=== PATIENT | female | born 1980 | race Caucasian/White ===

== ENCOUNTER 2024-08-03 11:45 | Outpatient (CLI) | payer OTHER, SELFPAY | END 2024-08-03 11:46 | disposition home or self-care (01) | PROVIDERS: PCP Physician Assistant; Visit Provider Obstetrics & Gynecology | DX: N83.209 Unspecified ovarian cyst, unspecified side (principal) | CPT/HCPCS: 82378; 86301; 86304 ==

== ENCOUNTER 2024-09-06 13:47 | Outpatient (CLI) | payer OTHER, SELFPAY ==
--- NOTE | 2024-09-06 13:45 | CRLHL7_ITS ---
For Patients: As a result of the Century Cures Act, medical imaging exams and procedure reports are released immediately into your electronic medical record. You may view this report before your referring provider. If you have questions, please contact your health care provider. CLINICAL HISTORY: Follow-up ovarian cysts TECHNIQUE: 2D carreon scale and color Doppler images were acquired of the pelvis using a transvaginal approach. COMPARISON 07/22/2024 FINDINGS: On transvaginal imaging, the myometrium has a normal uniform echotexture. The uterus measures 8.2 x 3.2 x 4.1 cm. The endometrial lining is not thickened. Normal position of an IUD within the endometrial canal. The left ovary measures 4.1 x 2.4 x 3.5 cm in size and the right ovary measures 3.0 x 1.3 x 2.6 cm. The ovaries demonstrate normal arterial and venous blood flow on color Doppler analysis. There are no suspicious fluid collections within the cul-de-sac. Decreased size of nonvascular hypoechoic right ovarian cyst measuring 1.3 x 0.8 x 1.3 cm, previously measuring 4.0 x 3.2 x 2.7 cm. Simple circumscribed anechoic left ovarian cyst measures 3.4 x 1.7 x 3.1 cm. Previously this measured 4.2 x 3.7 x 2.8 cm. Previously noted septations not present on the current study. IMPRESSION: Benign bilateral ovarian cysts. Dictated by Demetrius Darling MD @ 09/06/2024 5:18:51 PM (Electronically Signed)
== END 2024-09-06 13:48 | disposition home or self-care (01) ==
LOC: US 13:48
PROVIDERS: PCP Physician Assistant; Visit Provider Obstetrics & Gynecology
DX: N83.201 Unspecified ovarian cyst, right side (principal); N83.202 Unspecified ovarian cyst, left side
CPT/HCPCS: 76830

== ENCOUNTER 2025-02-28 13:28 | Outpatient (CLI) | payer OTHER, SELFPAY ==
--- NOTE | 2025-02-28 13:45 | CRLHL7_ITS ---
For Patients: As a result of the Century Cures Act, medical imaging exams and procedure reports are released immediately into your electronic medical record. You may view this report before your referring provider. If you have questions, please contact your health care provider. INDICATION: Pelvic and perineal pain COMPARISON: 09/06/2024 TECHNIQUE: 2D carreon-scale and color Doppler images were acquired of the pelvis using a transabdominal and transvaginal approach. Transvaginal imaging performed to better visualize the endometrial stripe and ovaries. Spectral Doppler evaluation of the ovaries also performed. FINDINGS: Sonographic images demonstrate a normal size and smooth outer contour of the uterus. Uterus measures 7.4 cm in length by 3.4 cm in AP diameter by 3.8 cm in transverse dimension. The myometrium has a normal uniform echotexture. The endometrial lining appears normal and measures 2.5 mm in composite thickness. IUD is present in good position within the endometrial canal. The right ovary measures 1.7 x 0.5 x 1.1 cm in size and the left ovary measures 3.3 x 2.0 x 1.6 cm. The ovaries demonstrate normal arterial and venous blood flow on color Doppler analysis. There are no suspicious fluid collections within the cul-de-sac. IMPRESSION: Normal position of an IUD within the endometrial canal. Normal ovaries. No ovarian cyst. Dictated by Demetrius Darling MD @ 02/28/2025 8:34:30 PM (Electronically Signed)
== END 2025-02-28 13:29 | disposition home or self-care (01) ==
LOC: US 13:28
PROVIDERS: PCP Physician Assistant; Visit Provider Obstetrics & Gynecology
DX: R10.20 Pelvic and perineal pain unspecified side (principal); Z97.5 Presence of (intrauterine) contraceptive device
CPT/HCPCS: 76830; 76856; 93976